=== PATIENT | male | born 1990 | race Two or more races ===

== ENCOUNTER 2016-08-17 23:27 | Emergency (ER) | payer OTHER ==
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
== END 2016-08-18 06:07 | disposition short-term general hospital (02) ==
LOC: CED 23:27
DX: S52.611A Displaced fracture of right ulna styloid process, initial encounter for closed fracture (principal); S52.571A Other intraarticular fracture of lower end of right radius, initial encounter for closed fracture; S63.004A Unspecified dislocation of right wrist and hand, initial encounter; V49.40XA Driver injured in collision with unspecified motor vehicles in traffic accident, initial encounter; Y92.9 Unspecified place or not applicable
CPT/HCPCS: 29125; 73090; 73590; 96372; 99285; J2270